=== PATIENT | male | born 1960 | race Caucasian/White ===

== ENCOUNTER 2020-10-20 11:39 | Emergency (ER) | payer MEDICARE, SELFPAY ==
[2020-10-20 12:00] VITALS: BP 142/62; PULSE 72; RESP 21; TEMP 36.6; O2SAT 94
--- NOTE | 2020-10-20 12:00 | ED.GENADULT ---
HPI - General Adult General Stated complaint: CP/Swelling In Chest/Shoulder Pain Time Seen by Provider: 10/20/20 12:00 Source: patient Mode of arrival: ambulatory Limitations: no limitations History of Present Illness HPI narrative: 60-year-old male patient presents to the [facility] with complaints of chest pain. Patient had surgery on his sternum in early September at [facility]. Patient states he did follow-up with a surgeon 2 weeks ago and is possibly following up with him in another 2 weeks. Patient states he has been through 50 hydrocodone within the last 2 weeks for pain. Patient states he continues to have pain as well as some shortness of breath however he does have history of COPD so he attributes his shortness of breath to his COPD. Patient was seen at [facility] emergency department on October 05 and given additional hydrocodone at that time for pain. Related Data Home Medications Medication Instructions Recorded Confirmed albuterol sulfate 2 puff INHALATION Q4H PRN 10/20/20 10/20/20 amiodarone [Pacerone] 200 mg PO BID 10/20/20 10/20/20 amlodipine 10 mg PO DAILY 10/20/20 10/20/20 aspirin [Aspirin Low Dose] 81 mg PO DAILY 10/20/20 10/20/20 atorvastatin 80 mg PO DAILY 10/20/20 10/20/20 clopidogrel 75 mg PO DAILY 10/20/20 10/20/20 insulin NPH and regular human 25 unit SUBCUT BID 10/20/20 10/20/20 [Humulin 70/30 U-100 KwikPen] isosorbide mononitrate 30 mg PO DAILY 10/20/20 10/20/20 losartan 25 mg PO DAILY 10/20/20 10/20/20 metoprolol tartrate 50 mg PO Q12H 10/20/20 10/20/20 triamterene-hydrochlorothiazid 1 tablet PO QAM 10/20/20 10/20/20 Allergies Allergy/AdvReac Type Severity Reaction Status Date / Time No Known Allergies Allergy Verified 10/20/20 11:58 Review of Systems Review of Systems: Narrative: CONSTITUTIONAL: Denies fever, chills, or sweats. EYES: Denies visual changes, redness, or discharge. ENT: Denies rhinorrhea, congestion, sore throat, or otalgia. CARDIOVASCULAR: Positive chest pain, denies palpitations, or edema. RESPIRATORY: Denies cough, positive dyspnea. GASTROINTESTINAL: Denies abdominal pain, nausea, vomiting, or diarrhea. GENITOURINARY: Denies dysuria or hematuria. SKIN: Denies rash or itching. MUSCULOSKELETAL: Denies back pain, joint pain, or myalgia. NEUROLOGIC: Denies headache, numbness, or weakness. PSYCHIATRIC: Denies anxiety or depression. PMFSH Comments At the time of my signature I agree with nursing past medical history, surgical, social, and family history. There is no relevant family history pertinent to the presenting complaint. Exam Narrative: Exam Narrative: GENERAL: Well-appearing, well-nourished, and in no acute distress. HEAD: Normocephalic, atraumatic. EYES: PERRLA and EOMI. ENT: Nares clear, no rhinorrhea or epistaxis. Mucous membranes moist. NECK: Supple. No lymphadenopathy CHEST: Clear to auscultation. No respiratory distress. Patient able talk in clear complete sentences. Patient does have a surgical scar noted to the midline chest with some erythema and swelling. No warmth noted to touch. HEART: Regular rate and rhythm. No murmur heard. Normal peripheral pulses. ABDOMEN: Soft, nontender, nondistended, normal active bowel sounds. EXTREMITIES: Normal range of motion. No edema. SKIN: Warm, dry, no rash. NEURO: No focal deficits. Alert and oriented x3. Course Vital Signs Vital signs: Vital Signs Temperature 36.6 C 10/20/20 12:00 Pulse Rate 72 10/20/20 12:00 Respiratory Rate 21 H 10/20/20 12:00 Blood Pressure 142/62 H 10/20/20 12:00 Pulse Oximetry 94 10/20/20 12:00 Temperature 36.6 C 10/20/20 12:00 Pulse Rate 72 10/20/20 12:00 Respiratory Rate 21 H 10/20/20 12:00 Blood Pressure 142/62 H 10/20/20 12:00 Pulse Oximetry 94 10/20/20 12:00 Vital signs reviewed The patient has been informed that they may have pre-hypertension or Hypertension based on a BP reading in the department. I recommend that the patient call the pr
--- NOTE | 2020-10-20 12:03 | ECG_ITS ---
Measurements Intervals [place] Rate: 65 P: 50 [place]: 202 QRS: -1 QRSD: 93 T: 64 QT: 448 QTc: 469 Interpretive Statements SINUS RHYTHM RSR' IN V1 OR V2, CONSIDER RIGHT VENTRICULAR HYPERTROPHY OR RIGHT VCD EARLY PRECORDIAL R/S TRANSITION BORDERLINE ST-T WAVE ABNORMALITY- HIGH LATERAL LEADS BASELINE WANDER- I, II, AVF, V3-V5 BORDERLINE ECG Electronically Signed On 10-20-2020 13:43:07 [employer] EX[employer] by Jaylen Fofana D.O.
[2020-10-20] MEDS: ASPIRIN 81 MG CHEWABLE TABLET 324 MG PO (12:28)
== END 2020-10-20 12:30 | disposition short-term general hospital (02) ==
PROVIDERS: Emergency Provider Nurse Practitioner Family
DX: R07.9 Chest pain, unspecified (principal); E78.00 Pure hypercholesterolemia, unspecified; I10 Essential (primary) hypertension; Z95.1 Presence of aortocoronary bypass graft; J44.9 Chronic obstructive pulmonary disease, unspecified; E11.9 Type 2 diabetes mellitus without complications
CPT/HCPCS: 93005; 99213; A9270; G0463